=== PATIENT | male | born 1955 | race Caucasian/White ===

== ENCOUNTER 2016-11-08 14:57 | Inpatient (IN) ==
--- NOTE | 2016-11-08 15:22 | EKG Report ---
Test Performed on : 11/08/2016 3:14:23 PM Test Reason : syncope Blood Pressure : / mmHG Vent. Rate : 087 BPM Atrial Rate : 087 BPM P-R Int : 146 ms QRS Dur : 092 ms QT Int : 326 ms P-R-T Axes : 048 045 020 degrees QTc Int : 392 ms Normal sinus rhythm. T wave abnormality, consider anterior ischemia Abnormal ECG When compared with ECG of 01-MAR-2016 12:54, Nonspecific T wave abnormality, worse in Inferior leads Inverted T waves have replaced nonspecific T wave abnormality in Anterior leads Unconfirmed Result
[2016-11-08] MEDS ORDERED: DUONEB (A & A) ONE (15:31)
[2016-11-08] MEDS ORDERED: NS 1,000 ML IV ONE (15:36)
[2016-11-08 15:39] LABS: BE 0.4 mmoll (-3.0-3.0); BLOOD TYPE ARTERIAL; DRAW SITE R RADIAL; METHB 0.8 % (0.0-1.5); O2(CT) 11.6 mL/dL (15.0-23.0); PCO2(98.6) 37 mmHg (35-45); PO2(98.6) 70 mmHg (60-100); SAMPLE BLOOD; THB 8.7 g/dL (11.5-17.4); pH(98.6) 7.43 (7.35-7.45)
[2016-11-08 15:41] LABS: ALLEN TEST YES; MODALITY CANNULA
--- NOTE | 2016-11-08 15:41 | PROVIDER DOCUMENTATION ---
HPI-Syncope/Dizziness - General Chief Complaint: Syncope Stated Complaint: fall/dizziness Time Seen by Provider: 11/08/16 15:35 Source: patient, family, EMS Allergies/Adverse Reactions: Patient Allergies Allergy/AdvReac Type Severity Reaction Status Date / Time cimetidine [From Tagamet] Allergy Severe "crazy" Verified 09/16/15 09:03 cimetidine HCl * Allergy Severe "crazy" Verified 09/16/15 09:03 [From Tagamet] escitalopram oxalate * Allergy Intermediate restless Verified 09/16/15 09:03 [From Lexapro] Penicillins Allergy Intermediate RASH Verified 09/16/15 09:03 Home Medications: Home Medication List Medication Instructions Recorded Confirmed Last Taken Type ROSUVAstatin [Crestor] 20 mg PO QHS 08/27/12 03/01/16 09/16/15 20:00 History Sertraline HCl [Zoloft] 200 mg PO DAILY 08/27/12 03/01/16 09/17/15 06:00 History Zonisamide [Zonegran] 300 mg PO QPM 08/27/12 03/01/16 09/16/15 20:00 History Aspirin 81 mg PO DAILY 09/29/14 03/01/16 09/17/15 06:00 History Donepezil [Aricept] 20 mg PO DAILY 09/29/14 03/01/16 09/17/15 06:00 History Levothyroxine [Synthroid] 50 mcg PO QAM 09/29/14 03/01/16 09/17/15 06:00 History Niacin 500 mg PO QHS 09/29/14 03/01/16 09/16/15 20:00 History Omeprazole [Prilosec] 20 mg PO QAM 09/29/14 03/01/16 09/17/15 06:00 History Buspirone HCl 30 mg PO BID 04/15/15 03/01/16 09/17/15 06:00 History Gabapentin [Neurontin] 100 mg PO QHS 04/15/15 03/01/16 09/17/15 06:00 History Levetiracetam [Keppra] 500 mg PO BID #60 tablet 05/15/15 03/01/16 09/17/15 06: 00 Rx Amlodipine [Norvasc] 5 mg PO DAILY #30 tablet 09/20/15 03/01/16 Unknown Rx Albuterol [Albuterol Neb] 2.5 mg INH [id number] PRN 03/01/16 03/01/16 Unknown History Meloxicam [Mobic] 15 mg PO DAILY 03/01/16 03/01/16 Unknown History Methocarbamol [Robaxin-750] 750 mg PO TID 03/01/16 03/01/16 Unknown History Quetiapine E.r. [Seroquel Xr] 300 mg PO QHS 03/01/16 03/01/16 Unknown History CefDINIR [Omnicef] 300 mg PO BID #10 capsule 03/03/16 Unknown Rx - History of Present Illness-Syncope/Dizzy Nature of Presenting Problem: Reports feeling weak and dizzy since this morning. Reports was walking to the bathroom this morning and fell. Denies any injuries. Pt normally ambulatory with cane. Home O2 has copd. Reports hx of cva affecting right side. Prior Episodes: reports: no prior history Onset/Duration: reports: this morning Timing: reports: still present Loss of Consciousness: no loss of consciousness Recently Seen Here or By Another Healthcare Provider: No - Dizziness Severity in ED: reports: moderate Dizziness Related Current/Associated Symptoms: reports: dizzy Any recent trauma/injury?: reports: none Modifying Factors: improves with: nothing Patient usually:: reports: uses a cane Review of Systems - Adult - REVIEW OF SYSTEMS - ADULT Constitutional: reports: bar. denies: chills, fever, weight gain, weight loss Eyes: reports: no symptoms reported Ears, Nose, Mouth & Throat: denies: ear pain, sinus problem, throat pain Cardiovascular: reports: no symptoms reported Respiratory: denies: cough, shortness of breath, wheezing Gastrointestinal: denies: abdominal pain, diarrhea, nausea, vomiting Genitourinary: reports: no symptoms reported Musculoskeletal: reports: no symptoms reported Integumentary: reports: no symptoms reported Neurological: reports: dizziness/vertigo. denies: ataxia, numbness, paresthesia , tremors Psychiatric: denies: anxiety, depression, emotional problems, suicidal thoughts Endocrine: reports: no symptoms reported Hematologic/Lymphatic: reports: no symptoms reported Allergic/Immunologic: reports: no symptoms reported All Other Systems: Reviewed and Negative Past History - Adult - PAST MEDICAL HISTORY-ADULT Review of Records: reports: Nursing Assessment Review Major Childhood Illnesses: reports: denies history Cardiovascular: reports: CHF, HTN, hyperlipidemia Respiratory: reports: COPD Gastrointestinal: reports: GERD Obstetrical/Gynecological: reports: denies history Genitourinary: reports: kidney stones Musculoskeletal: reports: chronic pain Neurological: reports: CVA, dementia, Seizures/Epilepsy Psychiatric: reports: anxiety Endocrine/Immune: reports: thyroid disorder Other Conditions: reports: denies history - PRIOR SURGERIES/PROCEDURES Surgical/Procedure History: reports: appendectomy, orthopedic (extremity) - PRIOR HOSPITALIZATIONS Prior Hospitalizations: reports: for other non-related - IMMUNIZATION STATUS Childhood Immunizations: See Nurse Assessment Flu Vaccine: See Nurse Assessment - FAMILY HISTORY Family History: reviewed, not pertinent - SOCIAL HISTORY Smoking: quit greater than 1 year Physical Exam-General - PHYSICAL EXAM-ADULT Initial Vital Signs Reviewed: Yes - CONSTITUTIONAL General Appearance: alert, no apparent distress, lethargic, other (bp 92/58). negative: appears well (ill appearing) - EYES Eyes: PERRL/EOMI, pale conjunctivae - HEAD, EARS, NOSE, MOUTH & THROAT HENMT: negative: moist mucous membranes (dry) - NECK Neck: non-tender, full range of motion, supple, normal inspection - RESPIRATORY Respiratory: chest non-tender, lungs clear, normal breath sounds, no pleuratic chest pain, no respiratory distress, no accessory muscle use - CARDIOVASCULAR Cardiovascular: regular rate, rhythm - GASTROINTESTINAL (ABDOMEN) Abdominal Exam: normal bowel sounds, non tender, soft, no organomegaly, no pulsatile mass - MUSCULOSKELETAL Extremity: normal range of motion, non-tender - SKIN Integumentary: warm/dry, pallor. negative: normal turgor - PSYCHIATRIC Psych/Mental Status: normal mood/affect, normal thought content, normal thought process, oriented x 3 Progress - PLAN OF CARE/RESULTS Progress/Plan/Lab Results: Orders Category Date Time Status Albuterol 2.5MG/Ipratrop 0.5MG [Duoneb (A & A)] Med 11/08/16 15:31 Discontinued 3 ml .ROUTE .STK-MED ONE EKG [EKG] Stat Ther 11/08/16 15:16 Draft Vital Signs - 24 hr 11/08/16 14:58 Temperature 96.9 F L Pulse Rate 90 Respiratory 18 Rate Blood Pressure 92/58 O2 Sat by Pulse 95 Oximetry Orders Category Date Time Status Cardiac Monitoring DIRECTED Care 11/08/16 15:31 Active Finger Stick Blood Sugar (ED) DIRECTED Care 11/08/16 15:31 Active Oxygen Therapy- ED Nursing DIRECTED Care 11/08/16 15:31 Active Saline Loc NOW Care 11/08/16 15:31 Active CHEST-1 VIEW [RAD] Stat Exams 11/08/16 15:31 Draft HEAD W/O CONTRAST [CT] Stat Exams 11/08/16 15:37 Draft ABG [RESP] Routine Lab 11/08/16 15:23 Completed ALCOHOL BLOOD Stat Lab 11/08/16 15:50 Completed CBC WITH ELECTRONIC DIFF [HEME] Stat Lab 11/08/16 15:50 Completed CK PROFILE [SP CHEM] Stat Lab 11/08/16 15:50 Completed COMPREHENSIVE METABOLIC PANEL [CHEM] Stat Lab 11/08/16 15:50 Completed D-DIMER PL [COAG] Stat Lab 11/08/16 15:50 Completed LACTATE, PLASMA [CHEM] Stat Lab 11/08/16 15:50 Completed OCCULT BLOOD SCREEN STOOL PL Stat Lab 11/08/16 16:35 Completed PRO B-NATRIURETIC PEPTIDE Stat Lab 11/08/16 15:50 Completed [address]IME WITH INR PL [COAG] Stat Lab 11/08/16 15:[address] [COAG] Stat Lab 11/08/16 15:50 Completed TROPONIN T Stat Lab 11/08/16 15:[address] W/POSS RFLX CULT [URINALYSIS] Stat Lab 11/08/16 16:39 Results URINE DRUG SCREEN PL Stat Lab 11/08/16 16:39 Completed 0.9% Sodium Chloride Inj [Ns] 1,000 ml Med 11/08/16 15:36 Active IV 250 mls/hr Albuterol 2.5MG/Ipratrop 0.5MG [Duoneb (A & A)] Med 11/08/16 15:31 Discontinued 3 ml .ROUTE .STK-MED ONE Pulse Oximetry Stat Oth 11/08/16 15:31 Active EKG [EKG] Stat Ther 11/08/16 15:16 Draft EKG [EKG] Stat Ther 11/08/16 15:31 Ordered US [Venous U/S Bilateral Legs] [CV] Stat Ther 11/08/16 16:53 Ordered Laboratory Tests 11/08/16 11/08/16 11/08/16 15:21 15:23 15:50 WBC RBC Hgb Hct MCV MCH MCHC RDW Std Deviation Plt Count MPV Immature Gran % (Auto) Neut % (Auto) Lymph % (Auto) [place] % (Auto) Eos % (Auto) Baso % (Auto) Immature Gran # (Auto) Neut # (Auto) Lymph # (Auto) [place] # (Auto) Eos # (Auto) Baso # (Auto) PT INR APTT (Factor Assay) D-Dimer Specimen Type ARTERIAL Sample Site R RADIAL pH 7.43 pCO2 37 pO2 70 HCO3 25.2 Base Excess 0.4 Oxyhemoglobin 94.0 L ABG O2 Sat (Calculated) 11.6 L ABG O2 Saturation 96.0 ABG Carboxyhemoglobin 1.30 ABG Methemoglobin 0.8 Rogers Test YES A-a O2 Difference 55.0 Total Hemoglobin 8.7 L Lactate 0.60 Liter Flow 1.0 Blood Gas Modality CANNULA FiO2 % 24.0 Sodium 137 Potassium 3.5 Chloride 102 Carbon Dioxide 22 L Anion Gap 13 BUN 40 H Creatinine 1.7 H Estimated GFR/1.73 m2 41 BUN/Creatinine Ratio 24 Glucose 139 H POC Glucose 143 H Calculated Osmolality 286 Calcium 9.6 Total Bilirubin 0.40 AST 244 H ALT 170 H Alkaline Phosphatase 89 Creatine Kinase 70 Troponin T [id number] Pept Total Protein 7.6 Albumin 3.3 L Globulin 4.0 Albumin/Globulin Ratio 1.0 Plasma Lactate Urine Source Stool Occult Blood Urine Opiates Screen Ur Oxycodone Screen Urine Methadone Screen Ur Barbituates Screen Ur Tricyclics Screen Ur Phencyclidine Scrn Ur Amphetamines Screen U Methamphetamines Scrn Urine MDMA Screen U Benzodiazepines Scrn Urine Cocaine Screen U Cannabinoids Screen Plasma/Serum Ethyl Alc 11/08/16 11/08/16 11/08/16 15:50 15:50 15:50 WBC 9.97 RBC 2.95 L Hgb 8.6 L Hct 26.1 L MCV 88.5 MCH 29.2 MCHC 33.0 RDW Std Deviation 13.3 Plt Count 173 MPV 9.5 Immature Gran % (Auto) 0.2 Neut % (Auto) 74.6 Lymph % (Auto) 15.1 L [place] % (Auto) 9.8 H Eos % (Auto) 0.2 Baso % (Auto) 0.1 Immature Gran # (Auto) 0.02 Neut # (Auto) 7.43 H Lymph # (Auto) 1.51 [place] # (Auto) 0.98 H Eos # (Auto) 0.02 Baso # (Auto) 0.01 PT INR APTT (Factor Assay) D-Dimer Specimen Type Sample Site pH pCO2 pO2 HCO3 Base Excess Oxyhemoglobin ABG O2 Sat (Calculated) ABG O2 Saturation ABG Carboxyhemoglobin ABG Methemoglobin Rogers Test A-a O2 Difference Total Hemoglobin Lactate Liter Flow Blood Gas Modality FiO2 % Sodium Potassium Chloride Carbon Dioxide Anion Gap BUN Creatinine Estimated GFR/1.73 m2 BUN/Creatinine Ratio Glucose POC Glucose Calculated Osmolality Calcium Total Bilirubin AST ALT Alkaline Phosphatase Creatine Kinase Troponin T < 0.010 [id number]-V-Niekxvibufi Pept Total Protein Albumin Globulin Albumin/Globulin Ratio Plasma Lactate 0.7 Urine Source Stool Occult Blood Urine Opiates Screen Ur Oxycodone Screen Urine Methadone Screen Ur Barbituates Screen Ur Tricyclics Screen Ur Phencyclidine Scrn Ur Amphetamines Screen U Methamphetamines Scrn Urine MDMA Screen U Benzodiazepines Scrn Urine Cocaine Screen U Cannabinoids Screen Plasma/Serum Ethyl Alc 11/08/16 11/08/16 11/08/16 15:50 15:50 15:50 WBC RBC Hgb Hct MCV MCH MCHC RDW Std Deviation Plt Count MPV Immature Gran % (Auto) Neut % (Auto) Lymph % (Auto) [place] % (Auto) Eos % (Auto) Baso % (Auto) Immature Gran # (Auto) Neut # (Auto) Lymph # (Auto) [place] # (Auto) Eos # (Auto) Baso # (Auto) PT 17.5 H INR 1.41 H APTT (Factor Assay) 34.7 D-Dimer Specimen Type Sample Site pH pCO2 pO2 HCO3 Base Excess Oxyhemoglobin ABG O2 Sat (Calculated) ABG O2 Saturation ABG Carboxyhemoglobin ABG Methemoglobin Rogers Test A-a O2 Difference Total Hemoglobin Lactate Liter Flow Blood Gas Modality FiO2 % Sodium Potassium Chloride Carbon Dioxide Anion Gap BUN Creatinine Estimated GFR/1.73 m2 BUN/Creatinine Ratio Glucose POC Glucose Calculated Osmolality Calcium Total Bilirubin AST ALT Alkaline Phosphatase Creatine Kinase Troponin T Muq-[id number]-Aeptwxrobnz Pept 520 H Total Protein Albumin Globulin Albumin/Globulin Ratio Plasma Lactate Urine Source Stool Occult Blood Urine Opiates Screen Ur Oxycodone Screen Urine Methadone Screen Ur Barbituates Screen Ur Tricyclics Screen Ur Phencyclidine Scrn Ur Amphetamines Screen U Methamphetamines Scrn Urine MDMA Screen U Benzodiazepines Scrn Urine Cocaine Screen U Cannabinoids Screen Plasma/Serum Ethyl Alc 11/08/16 11/08/16 11/08/16 15:50 16:35 16:39 WBC RBC Hgb Hct MCV MCH MCHC RDW Std Deviation Plt Count MPV Immature Gran % (Auto) Neut % (Auto) Lymph % (Auto) [place] % (Auto) Eos % (Auto) Baso % (Auto) Immature Gran # (Auto) Neut # (Auto) Lymph # (Auto) [place] # (Auto) Eos # (Auto) Baso # (Auto) PT INR APTT (Factor Assay) D-Dimer 2.54 H Specimen Type Sample Site pH pCO2 pO2 HCO3 Base Excess Oxyhemoglobin ABG O2 Sat (Calculated) ABG O2 Saturation ABG Carboxyhemoglobin ABG Methemoglobin Rogers Test A-a O2 Difference Total Hemoglobin Lactate Liter Flow Blood Gas Modality FiO2 % Sodium Potassium Chloride Carbon Dioxide Anion Gap BUN Creatinine Estimated GFR/1.73 m2 BUN/Creatinine Ratio Glucose POC Glucose Calculated Osmolality Calcium Total Bilirubin AST ALT Alkaline Phosphatase Creatine Kinase Troponin T Lhn-N-Ueudvoebrhl Pept Total Protein Albumin Globulin Albumin/Globulin Ratio Plasma Lactate Urine Source CLEAN CATCH Stool Occult Blood NEGATIVE Urine Opiates Screen Ur Oxycodone Screen Urine Methadone Screen Ur Barbituates Screen Ur Tricyclics Screen Ur Phencyclidine Scrn Ur Amphetamines Screen U Methamphetamines Scrn Urine MDMA Screen U Benzodiazepines Scrn Urine Cocaine Screen U Cannabinoids Screen Plasma/Serum Ethyl Alc 11/08/16 16:39 WBC RBC Hgb Hct MCV MCH MCHC RDW Std Deviation Plt Count MPV Immature Gran % (Auto) Neut % (Auto) Lymph % (Auto) [place] % (Auto) Eos % (Auto) Baso % (Auto) Immature Gran # (Auto) Neut # (Auto) Lymph # (Auto) [place] # (Auto) Eos # (Auto) Baso # (Auto) PT INR APTT (Factor Assay) D-Dimer Specimen Type Sample Site pH pCO2 pO2 HCO3 Base Excess Oxyhemoglobin ABG O2 Sat (Calculated) ABG O2 Saturation ABG Carboxyhemoglobin ABG Methemoglobin Rogers Test A-a O2 Difference Total Hemoglobin Lactate Liter Flow Blood Gas Modality FiO2 % Sodium Potassium Chloride Carbon Dioxide Anion Gap BUN Creatinine Estimated GFR/1.73 m2 BUN/Creatinine Ratio Glucose POC Glucose Calculated Osmolality Calcium Total Bilirubin AST ALT Alkaline Phosphatase Creatine Kinase Troponin T Zjm-[id number]-Cdfastjedrl Pept Total Protein Albumin Globulin Albumin/Globulin Ratio Plasma Lactate Urine Source Stool Occult Blood Urine Opiates Screen NONE DETECTED Ur Oxycodone Screen NONE DETECTED Urine Methadone Screen NONE DETECTED Ur Barbituates Screen NONE DETECTED Ur Tricyclics Screen NONE DETECTED Ur Phencyclidine Scrn NONE DETECTED Ur Amphetamines Screen NONE DETECTED U Methamphetamines Scrn NONE DETECTED Urine MDMA Screen NONE DETECTED U Benzodiazepines Scrn NONE DETECTED Urine Cocaine Screen NONE DETECTED U Cannabinoids Screen NONE DETECTED Plasma/Serum Ethyl Alc Vital Signs - 24 hr 11/08/16 14:58 Temperature 96.9 F L Pulse Rate 90 Respiratory 18 Rate Blood Pressure 92/58 O2 Sat by Pulse 95 Oximetry 17[address] mehta - XRAY 1 XRAY: Bilateral XRAY Study: Chest Impression: Abnormal (bilateral fibrosis with a small underlying infiltrate in the right base) - CT/MRI 1 CT Study: Head Impression: Abnormal (no hemorrhage. Atrophy) - CONSULTS/PCP/HOSPITALIST Notification #1 *Consult/PCP/Hospitalist*: Time Discussed: 17:07 Consult Disposition: Admit Departure - Departure Time of Disposition Order: 17:00 DIAGNOSIS: Generalized weakness, Elevated d-dimer Anemia Qualifiers: Anemia type: unspecified type Qualified Code(s): D64.9 - Anemia, unspecified Pneumonia Qualifiers: Pneumonia type: due to unspecified organism Laterality: unspecified laterality Lung location: unspecified part of lung Qualified Code(s): J18.9 - Pneumonia, unspecified organism Disposition: ADMITTED INPATIENT 09 Certified Medical Emergency: Emergent Condition: Stable Attestation - Scribe Verification/Attestation Scribe:: Andrei Powell Acting as Scribe for:: Pete Adame Scribe documention review:: This chart was documented by a scribe and accurately reflects the service the provider performed and the decisions made by the provider. Physician Attestation - Physician Attestation I, the provider, attest to the following statement:: Pete Adame Physician documentation Attestation:: This documentation recorded by the scribe accurately reflects the service I personally performed and the decisions made by me.
[2016-11-08 16:10] LABS: MANUAL DIFF NEEDED? NO
[2016-11-08 16:11] LABS: BASO% 0.1 % (0.0-0.8); EOS# 0.02 X1000 (0.0-0.7); EOS% 0.2 % (0.0-10.0); HEMATOCRIT 26.1 % (42.0-52.0); HEMOGLOBIN 8.6 g/dL (14.0-18.0); IMM GRAN# 0.02 X1000 (0.0-0.04); IMM GRAN% 0.2 % (0.0-0.5); LYMPH# 1.51 X1000 (1.2-3.4); LYMPH% 15.1 % (20.5-51.1); MCH 29.2 PG (27-31); MCV 88.5 FL (81-99); MONO# 0.98 X1000 (0.11-0.59); MONO% 9.8 % (1.7-9.3); MPV 9.5 FL (7.4-10.4); NEUT% 74.6 % (42.2-75.2); PLT 173 X1000 (130-400); RBC 2.95 XMIL (4.7-6.1)
[2016-11-08 16:16] LABS: INR 1.41 (0.86-1.15); PROTIME 17.5 Seconds (12.1-15.5)
[2016-11-08 16:17] LABS: PTT PL 34.7 Seconds (22.6-43.9)
[2016-11-08 16:28] LABS: ALBUMIN 3.3 g/dL (3.5-5.0); CALCIUM 9.6 mg/dL (8.8-10.2); POTASSIUM 3.5 mmol/L (3.5-5.1); TOTAL BILIRUBIN 0.4 mg/dL (0.20-1.00); TOTAL PROTEIN 7.6 g/dL (6.3-8.3)
--- NOTE | 2016-11-08 16:32 | Diag Imaging Result Document ---
PROCEDURE NAME: HEAD W/O CONTRAST - 11/08/2016 CT BRAIN WITHOUT. COMPARISON: Compared to 09/17/2015. TECHNIQUE: Dose reduction protocol. FINDINGS: No parenchymal hemorrhage. No epidural or subdural hematoma. No subarachnoid hemorrhage. There is diffuse atrophy. No mass identified on this noncontrasted exam. No hydrocephalus. Cerebellar atrophy is more advanced than cerebral atrophy. The appearance is similar to that of the prior exam. No sinus opacification. IMPRESSION: 1. No hemorrhage. 2. Atrophy. A preliminary report was given at 4:18 p.m.
--- NOTE | 2016-11-08 16:33 | Diag Imaging Result Document ---
PROCEDURE NAME: CHEST-1 VIEW - 11/08/2016 CHEST SINGLE VIEW: COMPARISON: Compared to 07/01/2016. FINDINGS: The lungs are well expanded. There are multiple scattered granulomata. There are increased markings in the mid right lung and in both lung bases. The majority of these markings were present on the prior exam and are likely due to fibrosis. Interval progression of the markings in the lower right lung which may indicate an underlying infiltrate, but could represent progression in the fibrosis. Heart is not enlarged. Trace left effusion. IMPRESSION: Bilateral fibrosis with a small underlying infiltrate in the right base.
[2016-11-08 16:51] LABS: URINE CULTURE PL NEEDED? NO; URINE SOURCE CLEAN CATCH
[2016-11-08 16:54] LABS: OCCULT BLOOD 1 NEGATIVE (NEGATIVE)
[2016-11-08 17:03] LABS: UR AMPHETAMINES QUAL NONE DETECTED (NONE DETECT); UR BARBITUATES QUAL NONE DETECTED (NONE DETECT); UR BENZODIAZEPIN QUAL NONE DETECTED (NONE DETECT); UR CANNABINOIDS QUAL NONE DETECTED (NONE DETECT); UR COCAINE QUAL NONE DETECTED (NONE DETECT); UR MDMA QUAL NONE DETECTED (NONE DETECT); UR METHADONE QUAL NONE DETECTED (NONE DETECT); UR METHAMPHETAMINE QUAL NONE DETECTED (NONE DETECT); UR OPIATES QUAL NONE DETECTED (NONE DETECT); UR OXYCODONE QUAL NONE DETECTED (NONE DETECT); UR PCP QUAL NONE DETECTED (NONE DETECT); UR TCA QUAL NONE DETECTED (NONE DETECT)
[2016-11-08 17:06] LABS: BILIRUBIN URINE NEGATIVE (NEGATIVE); BLOOD URINE 3+ (NEGATIVE); CLARITY VERY CLOUDY (CLEAR); COLOR YELLOW; GLUCOSE URINE NEGATIVE (NEGATIVE); LEUKOCYTES URINE NEGATIVE (NEGATIVE); NITRITE URINE NEGATIVE (NEGATIVE); PROTEIN URINE 2+(100 mg/dL) mg/dL (NEGATIVE); SP GRAVITY URINE 1.015; UROBILINOGEN URINE NORMAL
[2016-11-08 17:08] LABS: URINE CAST GRANULAR PRESENT /LPF; URINE EPITHELIAL CELLS >10 /HPF (<10); URINE WBC <10 /HPF (<10)
[2016-11-08] MEDS ORDERED: ZOFRAN IV PRN (21:08)
[2016-11-08] MEDS ORDERED: TYLENOL PO PRN (21:08)
[2016-11-08] MEDS: NS 1,000 ML IV SCH (22:12)
[2016-11-08] MEDS: ROCEPHIN 1 GM/NS 50 ML IV SCH (22:12)
[2016-11-08] MEDS: DUONEB (A & A) INH SCH (22:21)
[2016-11-09] MEDS: DUONEB (A & A) INH SCH ×4 (03:00→23:00)
[2016-11-09 06:54] LABS: HEMATOCRIT 25.7 % (42.0-52.0); HEMOGLOBIN 8.2 g/dL (14.0-18.0); MCHC 31.9 g/dL (33-37); MCV 87.7 FL (81-99); MPV 10.1 FL (7.4-10.4); RBC 2.93 XMIL (4.7-6.1)
[2016-11-09 06:57] LABS: POTASSIUM 3.4 mmol/L (3.5-5.1); TOTAL BILIRUBIN 0.4 mg/dL (0.20-1.00); TOTAL PROTEIN 6.8 g/dL (6.3-8.3)
[2016-11-09] MEDS ORDERED: PNEUMOVAX 23 IM ONE (09:00)
[2016-11-09] MEDS: ZOLOFT PO SCH (10:44)
[2016-11-09] MEDS: BUSPAR PO SCH ×2 (10:44→20:32)
[2016-11-09] MEDS: LOVENOX SUBQ SCH (10:44)
[2016-11-09] MEDS: KEPPRA PO SCH ×2 (10:45→20:30)
[2016-11-09] MEDS: NORVASC PO SCH (10:45)
[2016-11-09] MEDS: ASPIRIN PO SCH (10:45)
[2016-11-09] MEDS: SYNTHROID PO SCH (10:45)
[2016-11-09] MEDS: PRILOSEC PO SCH (10:45)
[2016-11-09] MEDS: ARICEPT PO SCH (10:45)
--- NOTE | 2016-11-09 12:31 | HISTORY AND PHYSICAL ---
CHIEF COMPLAINT: Syncope. HISTORY OF PRESENTING ILLNESS: This is a 61-year-old male, who presented to [facility] ER with complaints of feeling weak and dizzy that began yesterday morning. States he was walking to the bathroom and fell. States he normally ambulates with his cane. Has had a history of a cerebrovascular accident with right-sided weakness. Workup in the ER showed a blood pressure on arrival of 92/58. Laboratory data showed a hemoglobin and hematocrit of 8.6 and 26.1. He had a D-dimer of 2.54. His BUN and creatinine were 40 and 1.7, AST of 244, ALT 170. Urinalysis was negative. Stool for occult blood was negative. Urine drug screen was negative. The serum plasma alcohol level showed none detected. So, he was admitted for further evaluation and treatment. Chest x-ray was also noted to show bilateral fibrosis with a small underlying infiltrate in the right base. PAST MEDICAL HISTORY: Seizures, hypertension, hypothyroidism, a CVA 10+ years ago, and COPD. PAST SURGICAL HISTORY: Appendectomy and hand and toe surgery. FAMILY HISTORY: Cancer. SOCIAL HISTORY: He lives with family. States he quit smoking a little over a year ago, and denies any alcohol or illicit drug use. ALLERGIES: Cimetidine, escitalopram and penicillin. HOME MEDICATIONS: 1. He takes Mobic 15 mg p.o. daily p.r.n.; that will be held. 2. Norvasc 5 mg p.o. daily. 3. Aspirin 81 mg p.o. daily. 4. Buspirone 30 mg p.o. b.i.d. 5. Colace 200 mg p.o. at bedtime. 6. Aricept 20 mg p.o. daily. 7. Neurontin 100 mg p.o. at bedtime. 8. Keppra 500 mg p.o. b.i.d. 9. Synthroid 50 mcg p.o. q.a.m. 10. Ativan 1 mg p.o. at bedtime. 11. Robaxin 750 mg p.o. t.i.d. 12. Niacin 500 mg p.o. at bedtime. 13. Prilosec 20 mg p.o. q.a.m. 14. Seroquel XR 300 mg p.o. at bedtime. 15. Crestor 20 mg p.o. at bedtime. 16. Zoloft 200 mg p.o. daily. 17. Zonegran 300 mg p.o. q.p.m. LABORATORY DATA: Showed a white blood cell count of 9.97, hemoglobin 8.6, hematocrit 26.1, platelets 173. PT and INR of 17.5 and 1.41 with a D-dimer of 2.54. ABG with a pH of 7.43, pCO2 37, PO2 70, bicarbonate 25.2. Sodium of 137, potassium 3.5, chloride 102, CO2 22, BUN of 40, creatinine 1.7, glucose 139. AST was 244, ALT 170. Creatine kinase was 70 with a troponin of less than 0.010. ProBNP was 520. Urinalysis was negative. Stool for occult blood was negative. Urine drug screen was negative and serum plasma alcohol showed none detected. X-RAYS: Chest x-ray showed bilateral fibrosis with a small underlying infiltrate in the right base. Head CT showed no hemorrhage and atrophy. EKG showed normal sinus rhythm at 87. REVIEW OF SYSTEMS: He was positive for dizziness, weakness. Denies any chest pain, coughing, shortness of breath, palpitations, abdominal pain, constipation, diarrhea, or burning or hurting with urination. PHYSICAL EXAMINATION: VITAL SIGNS: Showed a temperature of 96.9 degrees, pulse 90, respirations 18, blood pressure 92/58, satting 95% on 2 L via nasal cannula on arrival. Currently, he has a temperature of 97.7 degrees, pulse 84, respirations 18, blood pressure 105/68, satting 94% on 2 L via nasal cannula. GENERAL: This is a 61-year-old male, who is lying in the bed and answers questions appropriately. HEENT: Normocephalic and atraumatic. Pupils are equal, round, and reactive to light. Extraocular movements are intact. The oropharynx and nares are clear. NECK: Supple. LUNGS: Clear to auscultation bilaterally with equal lung expansion and chest wall movement. HEART: Regular rate and rhythm. No murmurs, rubs, or gallops. ABDOMEN: Soft, nontender, nondistended. Bowel sounds are present x4 quadrants. EXTREMITIES: There is no clubbing, cyanosis, or edema. NEUROLOGICAL: The cranial nerves 2-12 appear grossly intact. ASSESSMENT: 1. Syncope. 2. Elevated D-dimer. 3. Acute kidney injury. 4. Pneumonia. 5. Elevated liver function tests. 6. Anemia. PLAN: He has been admitted to the medical unit at [facility] and placed on telemetry. We will check a carotid ultrasound and an echocardiogram today. We will do a lung V/Q scan today. He had bilateral lower extremity venous Dopplers done this a.m. that were reported as negative for DVT. He continues on normal saline at 75 mL an hour. He is on Rocephin 1 gram IV q. 24 hours, DuoNeb q. 6 hours Lovenox 40 mg subcutaneous q. 24 hours for DVT prophylaxis. We will continue his home medications as previously identified. Recheck a CBC and a CMP in the a.m. Dictated by SCAR Moreira for Luis Miguel Reed MD pt examined, agree with above, chronically illappearing but close to baseline, will continue to monitor h/h, may need outpt GI workup when stable APENOT MTDD
[2016-11-09] MEDS: ROBAXIN PO SCH ×2 (12:57→16:32)
--- NOTE | 2016-11-09 13:37 | Diag Imaging Result Document ---
PROCEDURE NAME: LUNG SCAN / VQ - 11/09/2016 PULMONARY VENTILATION PERFUSION SCAN: COMPARISON: Chest x-ray 11/08/2016. FINDINGS: 40.9 mCi of DTPA was used for inhalation. 5.4 mCi of MAA was used for injection. There is normal localization pattern of the radiotracers. IMPRESSION: Negative for pulmonary embolism.
[2016-11-09] MEDS: NS 1,000 ML IV SCH (15:17)
--- NOTE | 2016-11-09 16:52 | ECHO REPORT ---
ORDER DATE: 11/09/2016 TEST: Echo. INDICATION: Syncope. FINDINGS: 1. The right atrium is normal in size at 3.1 cm. 2. There is trace tricuspid regurgitation. RV systolic pressure of 37. 3. Normal RV size and systolic function. 4. Mild pulmonic insufficiency. 5. Normal left atrial size at 3.3 cm. 6. No mitral valve prolapse. No significant mitral regurgitation. 7. Normal LV size, end-diastolic dimension of 5.1. Normal wall thicknesses with a posterior and interventricular septal thickness of 0.7 cm each. Normal LV systolic function. Estimated EF 60% with normal wall motion. 8. The aortic valve opens well and appears trileaflet. There is no evidence of stenosis or insufficiency. 9. The aorta appears normal in visualized segments. 10. No pericardial effusion seen.
[2016-11-09] MEDS: ATIVAN PO SCH (20:30)
[2016-11-09] MEDS: COLACE PO SCH (20:30)
[2016-11-09] MEDS: ZONEGRAN PO SCH (20:30)
[2016-11-09] MEDS: NEURONTIN PO SCH (20:31)
[2016-11-09] MEDS: NIASPAN PO SCH (20:31)
[2016-11-09] MEDS: SEROQUEL XR PO SCH (20:32)
[2016-11-09] MEDS ORDERED: CRESTOR PO SCH (21:00)
[2016-11-10] MEDS: ROCEPHIN 1 GM/NS 50 ML IV SCH (00:24)
[2016-11-10] MEDS: NS 1,000 ML IV SCH (03:47)
[2016-11-10] MEDS: DUONEB (A & A) INH SCH ×4 (04:28→21:01)
[2016-11-10 05:52] LABS: MANUAL DIFF NEEDED? NO
[2016-11-10 06:03] LABS: BASO% 0.2 % (0.0-0.8); EOS# 0.15 X1000 (0.0-0.7); EOS% 2.6 % (0.0-10.0); HEMATOCRIT 24.9 % (42.0-52.0); HEMOGLOBIN 7.9 g/dL (14.0-18.0); IMM GRAN# 0.01 X1000 (0.0-0.04); IMM GRAN% 0.2 % (0.0-0.5); LYMPH# 0.89 X1000 (1.2-3.4); LYMPH% 15.2 % (20.5-51.1); MCH 27.9 PG (27-31); MCHC 31.7 g/dL (33-37); MONO# 0.51 X1000 (0.11-0.59); MONO% 8.7 % (1.7-9.3); MPV 9.5 FL (7.4-10.4); NEUT% 73.1 % (42.2-75.2); PLT 154 X1000 (130-400); RBC 2.83 XMIL (4.7-6.1)
[2016-11-10] MEDS: PRILOSEC PO SCH (06:19)
[2016-11-10] MEDS: SYNTHROID PO SCH (06:20)
[2016-11-10 06:38] LABS: IRON SATURATION 11 %; TIBC 114 ug/dL; TOTAL IRON 13 ug/dL (53-167); UNBOUND IRON 101 ug/dL (112-346)
[2016-11-10 06:39] LABS: AGAP 12; ALBUMIN 2.8 g/dL (3.5-5.0); ALKALINE PHOSPHATASE 84 U/L (32-122); BUN 18 mg/dL (8-22); CALCIUM 8.8 mg/dL (8.8-10.2); CHLORIDE 109 mmol/L (98-107); COSMO 282; GOT 94 U/L (10-34); GPT 105 U/L (10-44); POTASSIUM 3.1 mmol/L (3.5-5.1); SODIUM 140 mmol/L (136-145); TCO2 19 mmol/L (25-35); TOTAL PROTEIN 6.8 g/dL (6.3-8.3)
--- NOTE | 2016-11-10 07:09 | Extremity Venous Study ---
PROCEDURE NAME: Venous U/S Bilateral Legs - 11/09/2016 BILATERAL VENOUS FLOW EVALUATION: INDICATION: Shortness of breath. Elevated D-dimer. FINDINGS: The deep veins of the lower extremities demonstrate appropriate compressibility and augmentation. No intraluminal thrombus is visualized. There is no evidence for DVT. The superficial veins appear patent. IMPRESSION: No evidence for deep venous thrombosis of the bilateral lower extremities.
--- NOTE | 2016-11-10 07:11 | Extremity Venous Study ---
PROCEDURE NAME: Carotid Ultrasound - 11/09/2016 CAROTID FLOW EVALUATION: INDICATION: Syncope. Shortness of breath. CVA. FINDINGS: There are no velocity elevations to suggest hemodynamically significant carotid artery stenosis. ICA/CCA ratios are within normal limits. Vertebral flow is antegrade. There is minimal atherosclerotic plaque at the bifurcations. IMPRESSION: No evidence for hemodynamically significant carotid artery stenosis with estimated stenosis less than 50% bilaterally.
[2016-11-10] MEDS ORDERED: FERRLECIT 125 MG in NS 100 ML IV ONE (09:19)
[2016-11-10] MEDS ORDERED: KLOR-CON PO ONE (09:20)
[2016-11-10 09:42] LABS: FERRITIN 270 ng/mL (30-400)
[2016-11-10] MEDS: ARICEPT PO SCH (10:07)
[2016-11-10] MEDS: ZOLOFT PO SCH (10:07)
[2016-11-10] MEDS: BUSPAR PO SCH ×2 (10:08→20:28)
[2016-11-10] MEDS: ASPIRIN PO SCH (10:08)
[2016-11-10] MEDS: KEPPRA PO SCH ×2 (10:08→20:29)
[2016-11-10] MEDS: NORVASC PO SCH (10:08)
[2016-11-10] MEDS: ROBAXIN PO SCH ×3 (10:08→17:30)
[2016-11-10] MEDS: FOLIC ACID PO SCH (10:42)
[2016-11-10] MEDS: ICAR-C PO SCH (10:43)
[2016-11-10] MEDS: LOVENOX SUBQ SCH (10:52)
[2016-11-10] MEDS ORDERED: LASIX IV SCH (13:30)
[2016-11-10] MEDS ORDERED: NS 500 ML IV ONE (13:30)
[2016-11-10] MEDS: ZONEGRAN PO SCH (20:27)
[2016-11-10] MEDS: COLACE PO SCH (20:28)
[2016-11-10] MEDS: NIASPAN PO SCH (20:28)
[2016-11-10] MEDS: SEROQUEL XR PO SCH (20:28)
[2016-11-10] MEDS: NEURONTIN PO SCH (20:28)
[2016-11-10] MEDS: ATIVAN PO SCH (20:29)
[2016-11-11] MEDS: ROCEPHIN 1 GM/NS 50 ML IV SCH (01:45)
[2016-11-11] MEDS: DUONEB (A & A) INH SCH ×3 (03:30→16:49)
[2016-11-11] MEDS: PRILOSEC PO SCH (06:25)
[2016-11-11] MEDS: SYNTHROID PO SCH (06:25)
[2016-11-11 06:54] LABS: HEMATOCRIT 33.6 % (42.0-52.0); HEMOGLOBIN 11.5 g/dL (14.0-18.0); MCH 28.8 PG (27-31); MCHC 34.2 g/dL (33-37); MPV 9.7 FL (7.4-10.4)
[2016-11-11 07:20] LABS: AGAP 14; ALBUMIN 3.5 g/dL (3.5-5.0); ALKALINE PHOSPHATASE 102 U/L (32-122); BUN 16 mg/dL (8-22); CHLORIDE 104 mmol/L (98-107); COSMO 279; GOT 68 U/L (10-34); GPT 95 U/L (10-44); POTASSIUM 3.8 mmol/L (3.5-5.1); SODIUM 139 mmol/L (136-145); TCO2 21 mmol/L (25-35); TOTAL PROTEIN 7.2 g/dL (6.3-8.3)
[2016-11-11] MEDS: ASPIRIN PO SCH (09:44)
[2016-11-11] MEDS: NORVASC PO SCH (09:44)
[2016-11-11] MEDS: FOLIC ACID PO SCH (09:44)
[2016-11-11] MEDS: KEPPRA PO SCH ×2 (09:44→20:06)
[2016-11-11] MEDS: ICAR-C PO SCH (09:44)
[2016-11-11] MEDS: LOVENOX SUBQ SCH (09:44)
[2016-11-11] MEDS: ROBAXIN PO SCH ×3 (09:44→17:01)
[2016-11-11] MEDS: BUSPAR PO SCH ×2 (09:45→20:05)
[2016-11-11] MEDS: ZOLOFT PO SCH (09:45)
[2016-11-11] MEDS: ARICEPT PO SCH (09:45)
[2016-11-11 10:14] LABS: HEPATITIS PROFILE ACUTE SEE COMMENTS (())
--- NOTE | 2016-11-11 10:32 | Diag Imaging Result Document ---
PROCEDURE NAME: US GB < RUQ (LIMITED) - 11/11/2016 RIGHT UPPER QUADRANT ULTRASOUND: FINDINGS: Normal pancreas. No aneurysmal dilatation to the abdominal aorta. The inferior vena cava is poorly seen. No focal or diffuse hepatic abnormality. Normal right kidney. No hydronephrosis. The gallbladder is contracted. The wall is thickened. No stones. No ascites in the right upper quadrant. IMPRESSION: 1. No focal hepatic abnormality. 2. Contracted gallbladder with a thickened wall which may simply be secondary to it being incompletely distended.
--- NOTE | 2016-11-11 16:29 | PROGRESS NOTE ---
DATE: 11/11/2016 SUBJECTIVE: Patient resting quietly in bed. No complaints voiced. OBJECTIVE: Vital Signs: Temperature 97.7 degrees, pulse 73, respirations 18, blood pressure 119/83, saturating 98% on 3 L. General: This is a 61-year-old male who is lying in the bed and answers questions appropriately. HEENT: Normocephalic and atraumatic. Pupils are equal, round, reactive to light. The extraocular movements are intact. Oropharynx and nares are clear. Neck: Supple. Lungs: Clear to auscultation bilaterally with equal lung expansion and chest wall movement. Heart: With regular rate and rhythm. No murmurs, rubs, or gallops. Abdomen: Soft, nontender, nondistended. Bowel sounds are present x4 quadrants. Extremities: No clubbing, cyanosis, or edema. Neurological: The cranial nerves 2-12 are grossly intact. LABORATORY DATA: Showed a white blood cell count of 6.96, hemoglobin of 11.5, hematocrit 33.6, platelets 165,000. Sodium of 139, potassium 3.8, chloride 104, CO2 21, BUN of 16 with a creatinine of 1.2. Glucose 108. AST of 68, ALT 95, alkaline phosphatase 102. Had abdominal ultrasound this a.m. that showed no focal hepatic abnormality, a contracted gallbladder with a thickened wall which may simply be secondary to it being incompletely distended. HIDA scan is currently pending. ASSESSMENT: 1. Syncope resolved. 2. Elevated D-dimer. 3. Acute kidney injury resolved. 4. Pneumonia. Will continue his IV antibiotics and he is on day 3 duo nebs. 5. Elevated liver function tests. They continue to trend down. His abdominal ultrasound showed some contraction of his gallbladder with thickened saldnaa so we are obtaining a HIDA scan, which is pending at this time. 6. Anemia iron deficient. His hemoglobin and hematocrit are improved. He continues. Icar-C-C daily and folic acid 1 mg p.o. daily. We will check a CBC and a BMP in the a.m. We will review his HIDA scan when those results are available and if needed will consult surgery. Otherwise will plan for discharge in the morning. Dictated by SCAR Moreira for Luis Miguel Reed MD pt examined, agree with above, likely home in am if stable APENOT MTDD
--- NOTE | 2016-11-11 17:36 | Diag Imaging Result Document ---
PROCEDURE NAME: HIDA SCAN W/ EJECTION FRACTION - 11/11/2016 HIDA SCAN WITH EJECTION FRACTION: TECHNIQUE: Exam performed using 5.5 millicurie technetium-99m Choletec administered intravenously. FINDINGS: There is prompt tracer uptake and excretion by the liver with prompt appearance of tracer in small bowel. The gallbladder is promptly visualized, with gallbladder activity first visible 19-20 minutes following tracer administration. Gallbladder ejection fraction is calculated following administration of 8 ounces of p.o. liquid Ensure. The ejection fraction is calculated at 91%. IMPRESSION: Prompt visualization of gallbladder. 91% gallbladder ejection fraction.
[2016-11-11] MEDS: COLACE PO SCH (20:05)
[2016-11-11] MEDS: NIASPAN PO SCH (20:05)
[2016-11-11] MEDS: ZONEGRAN PO SCH (20:05)
[2016-11-11] MEDS: NEURONTIN PO SCH (20:06)
[2016-11-11] MEDS: SEROQUEL XR PO SCH (20:06)
[2016-11-11] MEDS: ATIVAN PO SCH (20:06)
[2016-11-12] MEDS: DUONEB (A & A) INH SCH ×3 (00:32→09:00)
[2016-11-12] MEDS: ROCEPHIN 1 GM/NS 50 ML IV SCH (01:45)
[2016-11-12] MEDS ORDERED: NS 500 ML IV ONE (01:59)
[2016-11-12] MEDS: PRILOSEC PO SCH (06:12)
[2016-11-12] MEDS: SYNTHROID PO SCH (06:12)
[2016-11-12 06:32] LABS: MANUAL DIFF NEEDED? NO
[2016-11-12 06:36] LABS: BASO% 0.4 % (0.0-0.8); EOS# 0.42 X1000 (0.0-0.7); EOS% 7.5 % (0.0-10.0); HEMATOCRIT 33.2 % (42.0-52.0); HEMOGLOBIN 11.2 g/dL (14.0-18.0); IMM GRAN# 0.03 X1000 (0.0-0.04); IMM GRAN% 0.5 % (0.0-0.5); LYMPH# 1.29 X1000 (1.2-3.4); MCH 28.6 PG (27-31); MCHC 33.7 g/dL (33-37); MCV 84.7 FL (81-99); MONO# 0.68 X1000 (0.11-0.59); MONO% 12.1 % (1.7-9.3); MPV 10.1 FL (7.4-10.4); NEUT% 56.5 % (42.2-75.2); PLT 173 X1000 (130-400); RBC 3.92 XMIL (4.7-6.1)
[2016-11-12 06:58] LABS: AGAP 12; BUN 26 mg/dL (8-22); CALCIUM 9.3 mg/dL (8.8-10.2); CHLORIDE 105 mmol/L (98-107); COSMO 284; POTASSIUM 3.8 mmol/L (3.5-5.1); SODIUM 140 mmol/L (136-145); TCO2 23 mmol/L (25-35)
[2016-11-12 07:33] VITALS: BP 110/66
[2016-11-12] MEDS: ASPIRIN PO SCH (08:46)
[2016-11-12] MEDS: NORVASC PO SCH (08:47)
[2016-11-12] MEDS: ARICEPT PO SCH (08:47)
[2016-11-12] MEDS: ROBAXIN PO SCH ×2 (08:47→13:44)
[2016-11-12] MEDS: BUSPAR PO SCH (08:47)
[2016-11-12] MEDS: FOLIC ACID PO SCH (08:47)
[2016-11-12] MEDS: ICAR-C PO SCH (08:47)
[2016-11-12] MEDS: KEPPRA PO SCH (08:47)
[2016-11-12] MEDS: ZOLOFT PO SCH (08:48)
[2016-11-12] MEDS: LOVENOX SUBQ SCH (10:22)
--- NOTE | 2016-11-12 16:12 | DISCHARGE SUMMARY ---
ADMISSION DATE: 11/08/2016 DISCHARGE DATE: 11/12/2016 PRIMARY CARE PHYSICIAN: Armando Bonilla MD. ADMISSION DIAGNOSES: 1. Syncope. 2. Elevated D-dimer. 3. Acute kidney injury. 4. Pneumonia. 5. Elevated liver function tests. 6. Anemia. DISCHARGE DIAGNOSES: 1. Syncope, resolved. 2. Elevated D-dimer. Ruled out for deep vein thrombosis. 3. Acute kidney injury, resolved. 4. Pneumonia. 5. Elevated liver function tests, improved. 6. Iron deficiency anemia. SUMMARY OF FINDINGS: This is a 61-year-old male who presented to [facility] with complaints of feeling weak and dizzy that began on the morning prior to arrival. States he was walking to the bathroom and fell. Normally ambulates with a cane because he has a history of a cerebrovascular accident with right-sided weakness. When he arrived, he had a blood pressure of 92/58. His hemoglobin and hematocrit were 8.6 and 26.1. He had a D-dimer of 2.54 and a creatinine of 1.7. His liver enzymes were elevated with AST of 244, ALT 140. Stool for occult blood was negative. Urine drug screen was negative. Serum alcohol level showed none detected. His chest x-ray showed a small underlying infiltrate in the right base, so he was admitted. We checked a head CT that showed no hemorrhage and atrophy. We did a lung scan, V/Q, that showed negative for pulmonary embolism. We did an echocardiogram that showed normal systolic function, estimated ejection fraction of 60%. We did a lower extremity venous Doppler study that showed no evidence of a DVT of the bilateral lower extremities. We did iron studies that showed he had an iron level of 13 with a TIBC of 114. He was placed on Icar-C 1 p.o. daily. He was also given 2 units of packed red blood cells. He tolerated it well. His hemoglobin and hematocrit now are up to 11.2 and 33.2. His kidney function has returned to a normal creatinine of 1.1. The patient has been up and ambulated in the hallway without difficulty, at his baseline. Feels that he needs home health at discharge with a physical therapy component, so we feel that he is ready to be discharged today. DISCHARGE MEDICATIONS: He will have a prescription for the Icar-C 1 p.o. daily and Omnicef 300 mg p.o. b.i.d. #14 for 7 days, and then he will continue his home medications of Norvasc 5 mg p.o. daily; aspirin 81 mg p.o. daily; BuSpar 30 mg p.o. b.i.d.; Colace 200 mg p.o. at bedtime; donepezil 20 mg p.o. daily; Neurontin 100 mg p.o. at bedtime; Keppra 500 mg p.o. b.i.d.; Synthroid 50 mcg p.o. q.a.m.; Ativan 1 mg p.o. at bedtime; Robaxin 750 mg p.o. t.i.d.; niacin 500 mg p.o. at bedtime; Prilosec 20 mg p.o. q.a.m.; Seroquel 300 mg p.o. at bedtime; Zoloft 200 mg p.o. daily; Zonegran 300 mg p.o. q.p.m.; albuterol nebs 4 times daily; Meloxicam 15 mg p.o. daily; and Crestor 20 mg p.o. at bedtime. FOLLOWUP: He will need to follow up with his primary care physician in the next 1-2 weeks and, again, he will have home health with a physical therapy component set up at discharge, as well. Dictation of discharge summary of 35 minutes. Dictated by SCAR Moreira for Luis Miguel Reed MD
== END 2016-11-12 14:47 | disposition home health service (06) | DRG 682 ==
LOC: P.ED 14:57 → P.MEDSURG 17:36
PROVIDERS: ATTEND Internal Medicine
PROC: 30233N1 Transfusion of Nonautologous Red Blood Cells into Peripheral Vein, Percutaneous Approach (ICD-10-PCS; principal; 2016-11-10)
DX: N17.9 Acute kidney failure, unspecified (principal); J18.9 Pneumonia, unspecified organism; J44.0 Chronic obstructive pulmonary disease with (acute) lower respiratory infection; I69.951 Hemiplegia and hemiparesis following unspecified cerebrovascular disease affecting right dominant side; I95.9 Hypotension, unspecified; J84.10 Pulmonary fibrosis, unspecified; R56.9 Unspecified convulsions; F03.90 Unspecified dementia, unspecified severity, without behavioral disturbance, psychotic disturbance, mood disturbance, and anxiety; D50.9 Iron deficiency anemia, unspecified; R55 Syncope and collapse; E87.6 Hypokalemia; I10 Essential (primary) hypertension; E03.9 Hypothyroidism, unspecified; F41.9 Anxiety disorder, unspecified; F32.9 Major depressive disorder, single episode, unspecified; Z79.899 Other long term (current) drug therapy; Z79.82 Long term (current) use of aspirin; Z79.1 Long term (current) use of non-steroidal anti-inflammatories (NSAID); Z87.891 Personal history of nicotine dependence; Z80.9 Family history of malignant neoplasm, unspecified
CPT/HCPCS: 36415; 70450; 71010; 76705; 78227; 78582; 80048; 80053; 80074; 80305; 81001; 82270; 82550; 82607; 82728; 82746; 82805; 82948; 82977; 83540; 83550; 83605; 83880; 84484; 85025; 85027; 85379; 85610; 85730; 86850; 86900; 86901; 86920; 87040; 93005; 93306; 93880; 93970; 94640; 94761; 96360; 96361; A9537; A9539; A9540; G0480; J0696; J1650; J1940; J2916; J7030; J7040; P9016; 80320

== ENCOUNTER 2017-01-17 13:48 | Inpatient (IN) ==
[2017-01-17] MEDS ORDERED: NARCAN IV ONE (14:30)
[2017-01-17] MEDS ORDERED: NS 1,700 ML IV ONE (14:31)
[2017-01-17] MEDS ORDERED: TYLENOL PR ONE (14:41)
[2017-01-17] MEDS ORDERED: ROCEPHIN 1 GM/NS 1 GM/50 ML IVPB IV ONE (14:42)
[2017-01-17 14:49] LABS: URINE CULTURE PL NEEDED? NO
[2017-01-17 14:50] LABS: BE -11.9 mmoll (-3.0-3.0); BLOOD TYPE ARTERIAL; DRAW SITE L RADIAL; METHB 1.3 % (0.0-1.5); O2(CT) 12.8 mL/dL (15.0-23.0); PCO2(98.6) 38 mmHg (35-45); PO2(98.6) 64 mmHg (60-100); SAMPLE BLOOD; SAO2 92.9 % (95.0-100.0); THB 10.1 g/dL (11.5-17.4); pH(98.6) 7.21 (7.35-7.45)
[2017-01-17 14:59] LABS: BILIRUBIN URINE NEGATIVE (NEGATIVE); BLOOD URINE 4+ (NEGATIVE); CLARITY CLEAR (CLEAR); COLOR AMBER; GLUCOSE URINE NEGATIVE (NEGATIVE); LEUKOCYTES URINE TRACE (NEGATIVE); NITRITE URINE NEGATIVE (NEGATIVE); PROTEIN URINE 2+(100 mg/dL) mg/dL (NEGATIVE); SP GRAVITY URINE 1.015; UROBILINOGEN URINE NORMAL
[2017-01-17 15:01] LABS: URINE EPITHELIAL CELLS <10 /HPF (<10); URINE SOURCE CATH; URINE WBC <10 /HPF (<10)
[2017-01-17 15:02] LABS: ALLEN TEST YES; MODALITY CANNULA
[2017-01-17 15:04] LABS: BASO% 0.1 % (0.0-0.8); HEMATOCRIT 27.8 % (42.0-52.0); HEMOGLOBIN 9.1 g/dL (14.0-18.0); IMM GRAN# 0.04 X1000 (0.0-0.04); IMM GRAN% 0.3 % (0.0-0.5); LYMPH# 0.88 X1000 (1.2-3.4); LYMPH% 7.4 % (20.5-51.1); MANUAL DIFF NEEDED? NO; MCH 28.7 PG (27-31); MCHC 32.7 g/dL (33-37); MCV 87.7 FL (81-99); MONO% 8.4 % (1.7-9.3); MPV 9.5 FL (7.4-10.4); NEUT% 83.8 % (42.2-75.2); PLT 190 X1000 (130-400); RBC 3.17 XMIL (4.7-6.1)
[2017-01-17 15:14] LABS: INR 1.67 (0.86-1.15); PROTIME 19.9 Seconds (12.1-15.5)
[2017-01-17 15:15] LABS: PTT PL 36.9 Seconds (22.6-43.9)
[2017-01-17 15:27] LABS: ALBUMIN 2.8 g/dL (3.5-5.0); CALCIUM 7.6 mg/dL (8.8-10.2); MAGNESIUM 3.4 mg/dL (1.5-2.7); TOTAL BILIRUBIN 0.9 mg/dL (0.20-1.00); TOTAL PROTEIN 7.8 g/dL (6.3-8.3)
[2017-01-17 15:28] LABS: POTASSIUM 6.2 mmol/L (3.5-5.1)
[2017-01-17] MEDS ORDERED: LEVAQUIN 750 MG/D5W 750 MG/150 ML IVPB IV ONE (15:46)
--- NOTE | 2017-01-17 15:49 | PROVIDER DOCUMENTATION ---
This chart was entered by Robert Ball Scribe, acting as scribe for Haritha Mccloud CRNP. HPI-Fever - General Chief Complaint: General Adult Stated Complaint: Not eating Time Seen by Provider: 01/17/17 14:08 Source: family Unable to obtain history due to:: altered Allergies/Adverse Reactions: Patient Allergies Allergy/AdvReac Type Severity Reaction Status Date / Time cimetidine [From Tagamet] Allergy Severe "crazy" Verified 09/16/15 09:03 cimetidine HCl * Allergy Severe "crazy" Verified 09/16/15 09:03 [From Tagamet] escitalopram oxalate * Allergy Intermediate restless Verified 09/16/15 09:03 [From Lexapro] Penicillins Allergy Intermediate RASH Verified 09/16/15 09:03 Home Medications: Home Medication List Medication Instructions Recorded Confirmed Last Taken Type ROSUVAstatin [Crestor] 20 mg PO QHS 08/27/12 11/08/16 09/16/15 20:00 History Sertraline HCl [Zoloft] 200 mg PO DAILY 08/27/12 11/08/16 09/17/15 06:00 History Zonisamide [Zonegran] 300 mg PO QPM 08/27/12 11/08/16 09/16/15 20:00 History Aspirin 81 mg PO DAILY 09/29/14 11/08/16 09/17/15 06:00 History Donepezil [Aricept] 20 mg PO DAILY 09/29/14 11/08/16 09/17/15 06:00 History Levothyroxine [Synthroid] 50 mcg PO QAM 09/29/14 11/08/16 09/17/15 06:00 History Niacin 500 mg PO QHS 09/29/14 11/08/16 09/16/15 20:00 History Omeprazole [Prilosec] 20 mg PO QAM 09/29/14 11/08/16 09/17/15 06:00 History Buspirone HCl 30 mg PO BID 04/15/15 11/08/16 09/17/15 06:00 History Gabapentin [Neurontin] 100 mg PO QHS 04/15/15 11/08/16 09/17/15 06:00 History Levetiracetam [Keppra] 500 mg PO BID #60 tablet 05/15/15 11/08/16 09/17/15 06: 00 Rx Amlodipine [Norvasc] 5 mg PO DAILY #30 tablet 09/20/15 11/08/16 Unknown Rx Albuterol [Albuterol Neb] 2.5 mg INH [id number] PRN 03/01/16 11/08/16 Unknown History Meloxicam [Mobic] 15 mg PO DAILY PRN 03/01/16 11/08/16 Unknown History Methocarbamol [Robaxin-750] 750 mg PO TID 03/01/16 11/08/16 Unknown History Quetiapine E.r. [Seroquel Xr] 300 mg PO QHS 03/01/16 11/08/16 Unknown History Docusate Sodium [Stool Softener] 200 mg PO HS 11/08/16 11/08/16 Unknown History Lorazepam 1 mg PO HS 11/08/16 11/08/16 Unknown History CefDINIR [Omnicef] 300 mg PO BID #14 capsule 11/12/16 Unknown Rx Iron Carbonyl/Ascorbic Acid 1 each PO DAILY #30 tablet 11/12/16 Unknown Rx [Icar-C] - History of Present Illness-Fever Nature of Presenting Problem: patient is a 61 yo M that present via EMS to the ER for possible sepsis. family reports patient has had foul smelling, ams, poor appetite and oral intake. He is on hospice at home, hospice has been giving patient morphine and ativan. Patient has a fever. no n/v/d or cough( out of his normal cough). Fever Severity/Quality: reports: greater than 102 F Onset/Duration: reports: gradual, 1 week ago Timing: reports: still present, getting worse Severity: reports: severe Recent Illness?: reports: none Modifying Factors: improves with: nothing Associated Symptoms: reports: fever/chills, genitourinary problems, loss of appetite, weakness. denies: cough, diarrhea, nausea, vomiting Similar Symptoms Previously?: No Recently seen or treated by another doctor?: No Review of Systems - Adult - REVIEW OF SYSTEMS - ADULT ROS:: ROS per family Constitutional: reports: fever, fatique Eyes: reports: no symptoms reported Ears, Nose, Mouth & Throat: reports: no symptoms reported Cardiovascular: denies: chest pain, palpitations Respiratory: denies: cough, shortness of breath, wheezing Gastrointestinal: reports: poor appetite. denies: diarrhea, nausea, vomiting Genitourinary: reports: other (foul smelling urine). denies: dysuria Musculoskeletal: reports: no symptoms reported Integumentary: reports: no symptoms reported Neurological: reports: other (decrease responsiveness). denies: dizziness/ vertigo, headache/migraines, paresthesia Psychiatric: reports: no symptoms reported Endocrine: reports: no symptoms reported Hematologic/Lymphatic: reports: no symptoms reported Allergic/Immunologic: reports: no symptoms reported All Other Systems: Reviewed and Negative Past History - Adult - PAST MEDICAL HISTORY-ADULT Review of Records: reports: Old Records Reviewed, Nursing Assessment Review, Medications Reviewed Cardiovascular: reports: CHF, HTN, hyperlipidemia Respiratory: reports: COPD Gastrointestinal: reports: GERD Genitourinary: reports: kidney stones Musculoskeletal: reports: chronic pain Neurological: reports: CVA, dementia, Seizures/Epilepsy Psychiatric: reports: anxiety Endocrine/Immune: reports: thyroid disorder Other Conditions: reports: denies history - PRIOR SURGERIES/PROCEDURES Surgical/Procedure History: reports: appendectomy, orthopedic (extremity) - PRIOR HOSPITALIZATIONS Prior Hospitalizations: reports: for other non-related - IMMUNIZATION STATUS Childhood Immunizations: See Nurse Assessment Flu Vaccine: See Nurse Assessment - FAMILY HISTORY Family History: reviewed, not pertinent - SOCIAL HISTORY Smoking: quit greater than 1 year, cigarettes Living Situation: family Physical Exam-General - PHYSICAL EXAM-ADULT Exam Limited by: pt condition Initial Vital Signs Reviewed: Yes - CONSTITUTIONAL General Appearance: moderate distress, severe distress, lethargic - EYES Eyes: pink conjunctivae, other - HEAD, EARS, NOSE, MOUTH & THROAT HENMT: normocephalic/atraumatic, moist mucous membranes, normal ENT inspection - NECK Neck: normal inspection. negative: lymphadenopathy - RESPIRATORY Respiratory: respiratory distress, crackles (left lung), rhonchi (whole right side), increased rate - CARDIOVASCULAR Cardiovascular: no JVD, tachycardia - GASTROINTESTINAL (ABDOMEN) Abdominal Exam: normal bowel sounds, non tender, soft. negative: distended, guarding - MUSCULOSKELETAL Extremity: no pedal edema, swelling (right arm). negative: erythema - SKIN Integumentary: warm/dry, pallor - PSYCHIATRIC Psych/Mental Status: other (decrease responsiveness) Progress - PLAN OF CARE/RESULTS Progress/Plan/Lab Results: Vital Signs - 8 hr 01/17/17 13:49 Temperature 104.0 F H Pulse Rate 131 H Respiratory Rate 30 H Blood Pressure 98/62 O2 Sat by Pulse Oximetry 87 L Laboratory Results - last 24 hr 01/17/17 01/17/17 01/17/17 14:30 14:35 14:45 WBC RBC Hgb Hct MCV MCH MCHC RDW Std Deviation Plt Count MPV Immature Gran % (Auto) Neut % (Auto) Lymph % (Auto) [place] % (Auto) Eos % (Auto) Baso % (Auto) Immature Gran # (Auto) Neut # (Auto) Lymph # (Auto) [place] # (Auto) Eos # (Auto) Baso # (Auto) PT INR APTT (Factor Assay) Specimen Type ARTERIAL Sample Site L RADIAL pH 7.21 L pCO2 38 pO2 64 HCO3 15.5 L Base Excess -11.9 L Oxyhemoglobin 89.8 L* ABG O2 Sat (Calculated) 12.8 L ABG O2 Saturation 92.9 L ABG Carboxyhemoglobin 2.00 ABG Methemoglobin 1.3 Rogers Test YES A-a O2 Difference 145.0 Total Hemoglobin 10.1 L Lactate 0.90 Liter Flow 4.0 Blood Gas Modality CANNULA FiO2 % 36.0 Sodium 148 H Potassium 6.2 H* Chloride 110 H Carbon Dioxide 15 L Anion Gap 24 BUN 104 H Creatinine 7.5 H Estimated GFR/1.73 m2 7 BUN/Creatinine Ratio 14 Glucose 99 Calculated Osmolality 327 Calcium 7.6 L Magnesium 3.4 H Total Bilirubin 0.90 AST 259 H ALT 44 Alkaline Phosphatase 124 H Total Protein 7.8 Albumin 2.8 L Globulin 5.0 Albumin/Globulin Ratio 1.0 Plasma Lactate Urine Source CATH Urine Color SUNNY Urine Clarity CLEAR Urine pH 5.0 Ur Specific [place] 1.015 Urine Protein 2+(100 mg/dL) A Urine Ketones TRACE Urine Blood 4+ Urine Nitrite NEGATIVE Urine Bilirubin NEGATIVE Urine Urobilinogen NORMAL Urine Microscopic RBC 10-20 A Urine WBC TRACE A Urine Microscopic WBC <10 Ur Epithelial Cells <10 Urine Glucose NEGATIVE 01/17/17 01/17/17 01/17/17 14:45 14:45 14:45 WBC 11.87 H RBC 3.17 L Hgb 9.1 L Hct 27.8 L MCV 87.7 MCH 28.7 MCHC 32.7 L RDW Std Deviation 16.2 H Plt Count 190 MPV 9.5 Immature Gran % (Auto) 0.3 Neut % (Auto) 83.8 H Lymph % (Auto) 7.4 L [place] % (Auto) 8.4 Eos % (Auto) 0.0 Baso % (Auto) 0.1 Immature Gran # (Auto) 0.04 Neut # (Auto) 9.94 H Lymph # (Auto) 0.88 L [place] # (Auto) 1.00 H Eos # (Auto) 0.00 Baso # (Auto) 0.01 PT 19.9 H INR 1.67 H APTT (Factor Assay) 36.9 Specimen Type Sample Site pH pCO2 pO2 HCO3 Base Excess Oxyhemoglobin ABG O2 Sat (Calculated) ABG O2 Saturation ABG Carboxyhemoglobin ABG Methemoglobin Rogers Test A-a O2 Difference Total Hemoglobin Lactate Liter Flow Blood Gas Modality FiO2 % Sodium Potassium Chloride Carbon Dioxide Anion Gap BUN Creatinine Estimated GFR/1.73 m2 BUN/Creatinine Ratio Glucose Calculated Osmolality Calcium Magnesium Total Bilirubin AST ALT Alkaline Phosphatase Total Protein Albumin Globulin Albumin/Globulin Ratio Plasma Lactate 1.0 Urine Source Urine Color Urine Clarity Urine pH Ur Specific [place] Urine Protein Urine Ketones Urine Blood Urine Nitrite Urine Bilirubin Urine Urobilinogen Urine Microscopic RBC Urine WBC Urine Microscopic WBC Ur Epithelial Cells Urine Glucose Orders Category Date Time Status Cardiac Monitoring DIRECTED Care 01/17/17 14:08 Active Henry Care ROUTINE Care 01/17/17 14:30 Active IV Insertion ORDERED Care 01/17/17 14:08 Active Notify of + Sepsis Screen NOW Care 01/17/17 14:08 Active CHEST-PORTABLE [RAD] Stat Exams 01/17/17 14:08 Taken ABG [RESP] Routine Lab 01/17/17 14:30 Completed BLOOD CULTURE [BLDCUL] Stat Lab 01/17/17 14:09 Ordered CBC WITH DIFF [HEME] Stat Lab 01/17/17 14:45 Completed CK PROFILE [SP CHEM] Stat Lab 01/17/17 14:45 Results COMPREHENSIVE METABOLIC PANEL [CHEM] Stat Lab 01/17/17 14:45 Results LACTATE, PLASMA [CHEM] Stat Lab 01/17/17 14:45 Completed MAGNESIUM [CHEM] Stat Lab 01/17/17 14:[address] WITH INR [address] [COAG] Stat Lab 01/17/17 14:[address] [COAG] Stat Lab 01/17/17 14:45 Completed TROPONIN T Stat Lab 01/17/17 14:[address] W/POSS RFLX CULT [URINALYSIS] Stat Lab 01/17/17 14:35 Completed 0.9% Sodium Chloride Inj [Ns] 1,700 ml Med 01/17/17 14:31 Active IV 999 mls/hr Acetaminophen [Tylenol] Med 01/17/17 14:41 Discontinued 650 mg OR NOW ONE CefTRIAXONE 1 GM/NS [Rocephin 1 gm/Ns] Med 01/17/17 14:42 Discontinued 1 gm in 50 ml IV NOW Naloxone [Narcan] Med 01/17/17 14:30 Discontinued 0.2 mg IV NOW ONE Oxygen Device Stat Oth 01/17/17 14:08 Active Result Diagrams: 01/17/17 14:45 01/17/17 14:45 - XRAY 1 XRAY Study: Chest XRAY Interpretation: Bilateral pneumonia (Rogers) - CONSULTS/PCP/HOSPITALIST Notification #1 *Consult/PCP/Hospitalist*: Dr. Chacon Time Discussed: 15:47 Reason/Comments: Admission Consult Disposition: Will see in ED, Admit Departure - Departure Time of Disposition Decision: 15:01 DIAGNOSIS: Pneumonia Qualifiers: Pneumonia type: due to unspecified organism Laterality: bilateral Lung location : unspecified part of lung Qualified Code(s): J18.9 - Pneumonia, unspecified organism Sepsis Qualifiers: Sepsis type: sepsis due to unspecified organism Qualified Code(s): A41.9 - Sepsis, unspecified organism Altered mental status Qualifiers: Altered mental status type: unspecified Qualified Code(s): R41.82 - Altered mental status, unspecified Disposition: ADMITTED INPATIENT 09 Certified Medical Emergency: Emergent Condition: Stable Referrals and Follow-Ups: None,PCP [Primary Care Provider] - - Critical Care Note This patient required my direct & personal management of CC.: No Attestation - Physician/ JOSEPH Attestation Patient care was provided by Advanced Practice Provider:: Yes Advanced Practice Provider:: Haritha Mccloud Advanced Practice Provider documentation review:: The Mid-level provider documentation, treatment plan and medical decision making was reviewed by the physician who agrees with all treatment and medical decision making by the MLP. This chart was documented by the indicated scribe, (Robert Ball, [place]) and accurately reflects the services I performed and decisions made by me, Haritha Mccloud CRNP, as attested by the provider's signature.
--- NOTE | 2017-01-17 16:06 | Diag Imaging Result Document ---
PROCEDURE NAME: CHEST-PORTABLE - 01/17/2017 CHEST SINGLE VIEW: COMPARISON: 11/08/2016 FINDINGS: There is diffuse bilateral airspace disease, right greater than left, most compatible with diffuse pneumonia. There is evidence of previous granulomatous infection. There is a small right pleural effusion. IMPRESSION: Increasing bilateral infiltrates, right greater than left, suspicious for pneumonia.
[2017-01-17 16:10] LABS: CK INDEX 0.2 (0.0-2.5); CK-MB 5.48 ng/mL (0.0-5.0)
--- NOTE | 2017-01-17 17:26 | HISTORY AND PHYSICAL ---
CHIEF COMPLAINT: Altered mental status, decreased p.o. intake, fever that has progressively worsened over the past several days. HISTORY OF PRESENTING ILLNESS: This is a 61-year-old male who was brought to [facility] ER via EMS for possible sepsis. The family reports that the patient has had altered mental status, poor appetite and intake, was currently on hospice at home with [facility], and states that their last known time that he had food and drink was about 3 days ago. He continued to progressively worsen so they called 911 for evaluation. States that they did notify hospice and those services are to be revocated. On arrival, the patient was noted to have a temperature of 104 degrees, pulse 131, respirations were 30, blood pressure was 98/62 with an O2 saturation of 87%. Laboratory data showed a white blood cell count of 11.87. His ABG showed a pH of 7.21, pCO2 of 38, PO2 64, bicarb 15.5. Sodium was 148, potassium 6.2, chloride 110, BUN 104, creatinine 7.5. Magnesium 3.4. An AST of 259. His ALT was normal at 44. Alkaline phosphatase 124. Creatine kinase was 2938. Troponin at 0.032. Plasma lactate was 1. Urinalysis was unremarkable. Then a chest x-ray that showed bilateral lower lobe pneumonia. So he will be admitted to the intensive care unit for further evaluation and treatment. It is noted that the attending physician, Dr. Chacon, spoke with the and family members about code status. At this time the patient will be a full code. The patient was told by attending that the patient was very critical with an overall poor prognosis at this point. Family verbalizes understanding. At this time there is not a living will. PAST MEDICAL HISTORY: Congestive heart failure, hypertension, hyperlipidemia, seizures, COPD, GERD, kidney stone, hypothyroidism, chronic pain, CVA, dementia, and anxiety. PAST SURGICAL HISTORY: Appendectomy. FAMILY HISTORY: Noncontributory. SOCIAL HISTORY: Currently lives with family. No tobacco use as he quit several years ago. No alcohol or illicit drug use. ALLERGIES: Cimetidine, escitalopram, and penicillin. HOME MEDICATIONS: A current list will be verified. They will be held at this time but we will verify them and as he improves we will restart those as appropriate. DIAGNOSTIC DATA: Laboratory data showed a white blood cell count of 11.87, hemoglobin 9.1, hematocrit 27.8, platelets 190,000, PT and INR of 19.9 and 1.67. ABG with a pH of 7.21, pCO2 of 38, PO2 64, bicarb 15.5, and this was on 4 L via nasal cannula. Sodium 148, potassium 6.2, chloride 110, CO2 15, BUN of 104, creatinine 7.5, magnesium 3.4, calcium 7.6. AST of 259, ALT 44, alkaline phosphatase 124, creatine kinase 2938 with a negative troponin at 0.032. Plasma lactate of 1.0. Urinalysis unremarkable. Chest x-ray per ER interpretation showed bilateral lower lobe pneumonia. REVIEW OF SYSTEMS: Unable to obtain from patient at this time. PHYSICAL EXAMINATION: VITAL SIGNS: Showed a temperature of 104 degrees, pulse 131, respirations 30, blood pressure 98/62, saturating 87% on arrival, currently has an O2 saturation on nasal cannula in the 90s on 6 L via nasal cannula. GENERAL: This is a 61-year-old male, who responds to painful stimuli and verbal stimuli but speech is incoherent but he does open his eyes when spoken to, but is very lethargic. HEENT: Appears normocephalic and atraumatic. Pupils are equal, round, and reactive to light. Extraocular movements are intact. Oropharynx and nares are clear. NECK: Supple. LUNGS: With some crackles in the left lung base, rhonchi on the right posteriorly. Was in moderate respiratory distress when he came in but has equal lung expansion and chest wall movement at the time of our assessment. HEART: Tachycardic. No murmurs, rubs, or gallops. ABDOMEN: Soft, nontender, nondistended. Bowel sounds are present in 4 quadrants. EXTREMITIES: No clubbing, cyanosis, or edema. NEUROLOGICAL: Unable to assess at this time due to patient's decreased responsiveness. ASSESSMENT: 1. Bilateral lower lobe pneumonia with sepsis. 2. Metabolic acidosis. 3. Acute kidney injury. 4. Rhabdomyolysis. 5. Hyperkalemia. 6. Dehydration. PLAN: He is being admitted to the intensive care unit at [facility], placed on O2 per protocol. We will check influenza A and B screen. Blood cultures x2 are pending. We will give DuoNeb q.4 hours. Placed on daptomycin 500 mg IV q.24, and Merrem 1 gram IV q.8h. Placed on normal saline at 125 mL an hour, SCDs for DVT prophylaxis, Henry catheter insertion. Recheck a CBC, CMP, cardiac profile. In the a.m., place on telemetry, and we give Veltassa 16.8 g x1. Again it was discussed by attending with the family on his poor prognosis. Family verbalizes understanding and at this time he will be a full code. Dictated by SCAR Moreira for Edward Hicks MD cc: SCAR Moreira MD
[2017-01-17] MEDS ORDERED: OFIRMEV 1000 MG/ISOTONIC SOLN 1,000 MG/100 ML BOTTLE IV PRN (19:06)
[2017-01-17] MEDS ORDERED: NS 1,000 ML IV ONE ×3 (19:06→20:55)
[2017-01-17] MEDS: DUONEB (A & A) INH SCH ×2 (19:26→22:45)
[2017-01-17] MEDS: VELTASSA PO ONE ×2 (19:54→20:21)
[2017-01-17] MEDS ORDERED: CUBICIN (FOR INPATIENT USE) 500 MG in NS 100 ML IV SCH (20:00)
[2017-01-17] MEDS ORDERED: MERREM 1 GM in NS 50 ML IV SCH (21:00)
[2017-01-17] MEDS: MERREM 1 GM in NS 50 ML IV SCH (22:01)
[2017-01-17 22:06] LABS: POTASSIUM 6.9 mmol/L (3.5-5.1)
[2017-01-17 22:07] LABS: CALCIUM 6.4 mg/dL (8.8-10.2)
[2017-01-17] MEDS ORDERED: D50W SYRINGE IV ONE (22:11)
[2017-01-17] MEDS ORDERED: HUMULIN R DOSE (PARKWAY) SUBQ ONE (22:11)
[2017-01-17] MEDS ORDERED: LEVOPHED 8 MG in D5 1/2 NS 250 ML IV SCH (22:15)
[2017-01-17] MEDS ORDERED: CALCIUM GLUCONATE IV PUSH ONE (22:42)
[2017-01-18] MEDS: DUONEB (A & A) INH SCH ×2 (03:04→07:50)
[2017-01-18] MEDS: MERREM 1 GM in NS 50 ML IV SCH (04:23)
[2017-01-18] MEDS ORDERED: NS 1,000 ML IV SCH ×2 (05:41→09:44)
[2017-01-18 07:04] LABS: BASO% 0.1 % (0.0-0.8); HEMATOCRIT 25.3 % (42.0-52.0); HEMOGLOBIN 8.2 g/dL (14.0-18.0); IMM GRAN# 0.05 X1000 (0.0-0.04); IMM GRAN% 0.5 % (0.0-0.5); LYMPH# 0.55 X1000 (1.2-3.4); LYMPH% 5.9 % (20.5-51.1); MANUAL DIFF NEEDED? YES; MCH 28.8 PG (27-31); MCHC 32.4 g/dL (33-37); MCV 88.8 FL (81-99); MONO# 1.17 X1000 (0.11-0.59); MONO% 12.6 % (1.7-9.3); MPV 9.7 FL (7.4-10.4); NEUT% 80.9 % (42.2-75.2); PLT 164 X1000 (130-400); RBC 2.85 XMIL (4.7-6.1)
[2017-01-18 07:30] LABS: ALBUMIN 2.2 g/dL (3.5-5.0); TOTAL BILIRUBIN 0.9 mg/dL (0.20-1.00); TOTAL PROTEIN 6.7 g/dL (6.3-8.3)
[2017-01-18 07:32] LABS: CALCIUM 6.7 mg/dL (8.8-10.2); POTASSIUM 7.1 mmol/L (3.5-5.1)
[2017-01-18 07:40] LABS: BANDS 6 % (0-1); LYMPHS 12 % (21-51); MONO 2 % (1-9)
[2017-01-18 08:09] LABS: CK INDEX 0.3 (0.0-2.5); CK-MB 12.84 ng/mL (0.0-5.0)
[2017-01-18] MEDS ORDERED: MORPHINE IV PRN (09:44)
--- NOTE | 2017-01-18 10:00 | PROGRESS NOTE ---
DATE: 01/18/2017 SUBJECTIVE: This patient is not doing good. He has a poor prognosis. His urine output is almost none. I had a conversation with his who is the next of kin and she states that she wants to change the code status to DNR level 1. Also we talked about inpatient hospice versus home hospice and she states that she wants to keep the patient here in the hospital with hospice. This patient has been on hospice for awhile. Apparently he is still on hospice and [facility] taking care [facility] him. She states that she wants to withdraw care. Also her son was at the bedside during the conversation. So once everything is set up with hospice and if he is okay for inpatient hospice, I will stop the treatment. OBJECTIVE: Vital Signs: Temperature 97.6 degrees, pulse 101, respiratory rate 16, blood pressure 91/53 on pressors, oxygen saturation 97% on 6 L of mask. HEENT: Head normocephalic. No trauma. PERRLA. Neck: Supple. No JVD. No masses. Central trachea. Lungs: Bilateral crackles mostly at the bases. Generalized rhonchi. Decreased expiatory phase. Heart: Tachycardic. No murmurs. No gallops. No rubs. Abdomen: Soft. Mildly distended. Nontender. Extremities: No clubbing, cyanosis, or edema. Neurological: This patient is lethargic. Mild response to pain stimulation. LABORATORY: WBC 9.3, hemoglobin 8.2, hematocrit 25.3, platelet 164,000. Sodium 149, potassium 7.1, chloride 114, BUN 106, creatinine 7.4, glucose 110, calcium 6.7, AST 370, ALT 56, alkaline phosphatase 173. CK MB 12.8. Albumin 2.2. ASSESSMENT AND PLAN: 1. Bilateral multifocal pneumonia with sepsis. This patient is on pressors at this moment but the family is talking about withdrawing care. We will contact hospice to put this patient inpatient hospice. 2. Metabolic acidosis, likely secondary to decreased oxygenation and sepsis. Continue with the same management. 3. Acute kidney injury. This patient is not making urine. We will continue to monitor. 4. Rhabdomyolysis. Aware. 5. Hyperkalemia. Since the family is going to withdraw care, I talked to them about the hyperkalemia and the other treatments and they decided to hold it for now. 6. Dehydration. This patient has been on IV fluids since yesterday. 7. Advanced chronic obstructive pulmonary disease. This is the reason why this patient has been on hospice during this period of time. We we are going to contact hospice again today. 8. History of hypothyroidism. Aware. 9. History of congestive heart failure. Continue with the same management. 10. Overall, this patient has a poor prognosis. Family talked to me in the morning and they decided to put this patient DNR level 1 and contact hospice for possible inpatient hospice. cc: Edward Hicks MD MTDD
[2017-01-18 11:37] VITALS: BP 59/37
--- NOTE | 2017-01-19 07:02 | DISCHARGE SUMMARY ---
ADMISSION DATE: 01/17/2017 DISCHARGE DATE: 01/18/2017 HOSPITAL COURSE: Mr. House was admitted on 01/17/2017 secondary to sepsis due to bilateral multifocal pneumonia, metabolic acidosis, acute kidney injury, rhabdomyolysis, hyperkalemia, advanced COPD, history of hypothyroidism, and CHF. Since the beginning, this patient was critically ill and poor prognosis. I talked to the family at the bedside yesterday and also today about his prognosis. This patient, since admission, was not improving. I explained to the family the whole situation and they seem to understand. They decided to put this patient DNR level 1 and withdraw care. We contacted hospice and they said that if the patient needs care from them, we can call them again if the patient has anxiety or has some kind of pain problems. We stopped all the treatment and we sent this patient to the medical floor with oxygen and pain medication. This patient at 12:23 p.m. on 01/18/2017. DISCHARGE DIAGNOSES: 1. Sepsis secondary to bilateral multifocal pneumonia. 2. Acute respiratory failure. 3. Metabolic acidosis. 4. Acute kidney injury. 5. Hyperkalemia. 6. Rhabdomyolysis. 7. Dehydration. 8. End-stage chronic obstructive pulmonary disease. 9. Hypothyroidism. 10. History of congestive heart failure. This patient demised at 12:23 p.m. on 01/18/2017. cc: Edward Hicks MD
== END 2017-01-18 12:23 | disposition expired ==
LOC: P.ED 13:48 → P.ICU 17:45 → P.MEDSURG 01-18 11:20
PROVIDERS: ATTEND Internal Medicine